=== PATIENT | male | born 1990 ===

== ENCOUNTER 2024-01-01 18:33 | Emergency (ER) | payer MEDICAID, SELFPAY ==
[2024-01-01 18:40] VITALS: BP 137/86; PULSE 89; RESP 18; TEMP 37.1; O2SAT 96; BMI 42.8
--- NOTE | 2024-01-01 18:41 | ED.GENADULT ---
HPI - General Adult General Chief complaint: Abdominal Pain Stated complaint: abd pain ,legs swollen Time Seen by Provider: 01/02/24 01:00 Source: patient Mode of arrival: ambulatory History of Present Illness ED Provider: Dr. Katz HPI narrative: Patient has known for years that he has hep C. He has not undergone any treatments. States on occasion he has noticed that his eyes are yellow and his urine is dark. States he intermittently has leg swelling and has an itchy rash to his legs. Related Data Allergies Allergy/AdvReac Type Severity Reaction Status Date / Time bee pollen [bee stings] Allergy Anaphylaxis Verified 01/01/24 18:40 shellfish derived Allergy Hives Verified 01/01/24 18:40 Review of Systems Review of Systems: Yes all other systems are reviewed and are negative Neurologic: Denies Sensory deficit (Neuro) Physical Exam ED Vital Signs: Vital Signs - 24 hr 01/01/24 18:40 01/02/24 01:02 Temperature 98.7 F 97.9 F Pulse Rate 89 70 Respiratory Rate 18 18 Blood Pressure 137/86 113/62 Pulse Oximetry 96 97 Oxygen Delivery Method Room Air Room Air BMI result Body Mass Index 42.8 Const Other: obese male looking older than stated age Orientation/consciousness: oriented to person and patient oriented x3 Limitations: no limitations HENMT Head: Yes normal to inspection Ears: external ears normal General nose exam: Normal external nose present Mouth: Normal oral and palatal mucosa present and oropharynx normal Throat: Yes posterior oropharynx normal Eyes General: appearance normal, both eyes and all related structures Neck Neck: Yes normal visual inspection Chest Chest palpation & inspection: normal inspection of the chest Resp Auscultation: clear to auscultation bilaterally Cardio Jugular venous distension: no JVD Rate: regular rate Rhythm: regular rhythm Heart sounds: S1 normal heart sound present and S2 normal heart sound present GI Inspection: Yes normal to inspection Palpation (GI): Soft to palpation, nontender and No hepatosplenomegaly present Auscultation: normal bowel sounds General: Yes no CVA tenderness Back/Spine/Pelvis Back: no CVA tenderness Skin Other: bilateral leg swelling with folliculitis to both legs Neuro General: oriented to person and patient oriented x3 Cranial nerves: Yes CN's II-XII intact bilaterally Motor exam (neuro): 5/5 motor strength present throughout Sensory Exam: No Sensory deficit (Neuro) Extrem Other: leg edema bilaterally Psych Appearance: grossly normal Course Course Course Narrative: RME performed by Juliana Thompson PA-C. Patient is a 33 year old assigned male at presenting to the emergency department with fatigue and feeling generally unwell. Patient states he has a history of hepatitis C that he is not taking care of. Patient states that he recently moved out to [facility] from the [facility]. Patient states that he is also having abdominal pain. Detailed physical exam and review of systems are deferred to the mental health clinician. Labs and swabs ordered. Patient placed back in the waiting room pending room availability and results. Reevaluation(s) Reevaluation #1: patient with elevated lfts likely secondary to his hepatitis C. Will refer to infectious disease Time: 01:25 Medical Decision Making Differential Diagnosis Differential Diagnoses: The differential diagnosis associated with the presentation includes (liver failure, cirrhosis, hepatitis C, folliculitis) Admission/Observation Consideration of admission/observation: Escalation of care including admission/observation considered (upon arrival patient considered for admission) Lab Data 01/01/24 21:42 01/01/24 21:42 Labs: Lab Results 01/01/24 01/01/24 Range/Units 19:00 21:42 WBC 8.8 (4.8-10.8) X10*3/uL RBC 4.62 (4.60-5.80) X10*6/uL Hgb 14.4 (14.0-18.0) g/dl Hct 42.5 (42.0-52.0) % MCV 92.0 (80.0-98.0) fL MCH 31.2 (27.0-33.0) pg MCHC 33.9 (31.0-36.0) g/dl RDW 12.5 (11.0-16.0) % Plt Count 127 L (160-400) X10*3/uL MPV 10.5 (9.4-12.4) fL Immature Gran % (Auto) 0.6 H (0.0-0.4) % Neut % (Auto) 55.7 (45-73) % Lymph % (Auto) 33.5 (20-40) % [place] % (Auto) 8.0 (2-11) % Eos % (Auto) 1.6 (0-4) % Baso % (Auto) 0.6 (0-2) % Lymph # (Auto) 2.9 (1.2-4.9) X10*3/uL [place] # (Auto) 0.7 (0.1-1.2) X10*3/uL Eos # (Auto) 0.1 (0.0-0.4) X10*3/uL Baso # (Auto) 0.1 (0.0-0.2) X10*3/uL Abs Immat Gran (auto) 0.05 H (0.00-0.03) X10*3/uL Absolute Neuts (auto) 4.9 (2.0-8.3) x10*3/uL Absolute Nucleated RBC 0.000 (0.0-0.012) X10*3/uL Nucleated RBC % (auto) 0.0 (0.0-0.2) /100WBC PT 12.1 (11.1-13.3) SEC INR 1.0 (0.9-1.1) APTT 34.1 (26.0-36.8) SEC Sodium 139 (135-145) mmol/L Potassium 3.9 (3.3-5.1) mmol/L Chloride 106 (96-108) mmol/L Carbon Dioxide 24 (22-29) mmol/L Anion Gap 13 (12-20) BUN 15 (9-16) mg/dL Creatinine 1.13 (0.5-1.4) mg/dL Estim Creat Clear Calc 135.1 Estimated GFR > 60 Random Glucose 103 (60-115) mg/dL Calcium 9.2 (8.4-10.2) mg/dL Magnesium 2.1 (1.6-2.6) mg/dL Total Bilirubin 0.5 (0.0-1.0) mg/dL AST 122 H (5-37) U/L ALT 103 H (0-40) U/L Alkaline Phosphatase 142 H (39-117) U/L Ammonia 49 (13-55) umol/L Total Protein 7.7 (6.5-8.0) g/dL Albumin 3.5 (3.5-5.0) g/dL Lipase 21 (8-78) U/L Influenza Type A (PCR) NEGATIVE (Negative) Influenza Type B (PCR) NEGATIVE (Negative) RSV RNA Qual (PCR) NEGATIVE (Negative) SARS-CoV-2 RNA (RT-PCR) NEGATIVE (Negative) Tests considered The following testing was considered but not selected: US of liver considered but patient with known hep C with liver damage Prescription Management I considered prescription management with: Antibiotic (no bacterial infection noted) Chronic Conditions Patient?s care impacted by: Other (Hep C) Social Determinants Patient?s care significantly limited by Social Determinants of Health including: Low income and Alcoholism and drug addiction in family Discharge Plan Discharge Clinical Impression: Hepatitis C, Folliculitis Patient Disposition: Home, Self-Care Instructions: Hepatitis C (ED), Folliculitis (ED) Additional Instructions: call Dr. Vidal for your hepatitis C treatment Referrals: Dolores Vidal MD [Physician] - 5 days Print Language: Turkmen
[2024-01-01 19:50] LABS: Influenza A PCR NEGATIVE (Negative); Influenza B PCR NEGATIVE (Negative); Resp Syncy Virus RNA Qual PCR NEGATIVE (Negative); SARS COV2 PCR INHOUSE NEGATIVE (Negative)
[2024-01-01 21:49] LABS: MANUAL DIFF FLAG NO
[2024-01-01 21:52] LABS: Basophils Absolute Auto 0.1 X10*3/uL (0.0-0.2); Basophils Percent Auto 0.6 % (0-2); Eosinophils Absolute Auto 0.1 X10*3/uL (0.0-0.4); Eosinophils Percent Auto 1.6 % (0-4); Hematocrit 42.5 % (42.0-52.0); Hemoglobin 14.4 g/dl (14.0-18.0); Imm Gran Abs Auto 0.05 X10*3/uL (0.00-0.03); Imm Gran Pct Auto 0.6 % (0.0-0.4); Lymphocytes Absolute Auto 2.9 X10*3/uL (1.2-4.9); Lymphocytes Percent Auto 33.5 % (20-40); Mean Corpuscular HGB Conc 33.9 g/dl (31.0-36.0); Mean Corpuscular Hemoglobin 31.2 pg (27.0-33.0); Mean Platelet Volume 10.5 fL (9.4-12.4); Monocytes Absolute Auto 0.7 X10*3/uL (0.1-1.2); Neutrophils Absolute Auto 4.9 x10*3/uL (2.0-8.3); Neutrophils Percent Auto 55.7 % (45-73); Platelet Count 127 X10*3/uL (160-400); Red Blood Count 4.62 X10*6/uL (4.60-5.80); Red Cell Distribution Width 12.5 % (11.0-16.0); White Blood Count 8.8 X10*3/uL (4.8-10.8)
[2024-01-01 21:56] LABS: Prothrombin Time 12.1 SEC (11.1-13.3)
[2024-01-01 21:57] LABS: Ammonia 49 umol/L (13-55)
[2024-01-01 21:59] LABS: Partial Thromboplastin Time 34.1 SEC (26.0-36.8)
[2024-01-01 22:06] LABS: Alanine Aminotransferase 103 U/L (0-40); Albumin Level 3.5 g/dL (3.5-5.0); Alkaline Phosphatase 142 U/L (39-117); Anion Gap 13 (12-20); Aspartate Amino Transferase 122 U/L (5-37); Bilirubin Total 0.5 mg/dL (0.0-1.0); Blood Urea Nitrogen 15 mg/dL (9-16); Calcium 9.2 mg/dL (8.4-10.2); Carbon Dioxide 24 mmol/L (22-29); Chloride 106 mmol/L (96-108); Creatinine Clr Calc Pharmacy 135.1; Estimated Glomerular Filt Rate > 60; Glucose Random 103 mg/dL (60-115); Lipase 21 U/L (8-78); Magnesium 2.1 mg/dL (1.6-2.6); Potassium 3.9 mmol/L (3.3-5.1); Sodium 139 mmol/L (135-145); Total Protein 7.7 g/dL (6.5-8.0)
--- NOTE | 2024-01-01 22:43 | PC.NURSE ---
Sleeping on bench outside of ER Waiting room, per registration staff.
[2024-01-02 01:02] VITALS: BP 113/62; PULSE 70; RESP 18; TEMP 36.6; O2SAT 97
[2024-01-02 01:47] VITALS: BP 113/62; PULSE 70; RESP 18; TEMP 36.6; O2SAT 97
== END 2024-01-02 01:47 | disposition home or self-care (01) ==
PROVIDERS: Physician Assistant Medical; Emergency Provider Emergency Medicine
DX: R10.9 Unspecified abdominal pain (principal); L73.9 Follicular disorder, unspecified; B19.20 Unspecified viral hepatitis C without hepatic coma; R60.0 Localized edema; Z03.818 Encounter for observation for suspected exposure to other biological agents ruled out; Z79.899 Other long term (current) drug therapy
CPT/HCPCS: 0241U; 80053; 82140; 83690; 83735; 85025; 85610; 85730; 99283

== ENCOUNTER 2024-01-15 15:48 | Outpatient (AMB) | payer MEDICAID, SELFPAY ==
--- NOTE | 2024-01-15 15:49 | A.OFFVIS_ITS ---
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 He is interested in getting Hepatitis C treated. [facility] Medical History Abdominal discomfort in right upper quadrant Hepatitis C antibody positive in blood Review of Systems Const All systems reviewed & are unremarkable except as noted in HPI and below Physical Exam Vital Signs: Last Vital Signs Pulse 85 01/15/24 15:54 BP 155/80 H 01/15/24 15:54 BMI result Body Mass Index 43.0 Const General: cooperative Orientation/consciousness: patient oriented x3 HEENT Head: Yes normal to inspection Mouth: Normal oral and palatal mucosa present Eyes General: appearance normal, both eyes and all related structures Pupils: Equal, round and reactive pupils present Resp Effort & Inspection: normal respiratory effort Cardio Rate: regular rate Rhythm: regular rhythm GI Palpation (GI): Soft to palpation and nontender General: Yes no CVA tenderness Back/Spine/Pelvis Back: no CVA tenderness Skin General skin exam: no rashes or lesions noted Neuro General: patient oriented x3 Cranial nerves: Yes CN's II-XII intact bilaterally and Yes Equal, round and reactive pupils present Extrem General: Yes normal to inspection Psych Appearance: grossly normal Assessment & Plan Assessment & Plan (1) Hepatitis C: Comment: We need to check viral load and labs and order them and u/s Code(s): B19.20 - Unspecified viral hepatitis C without hepatic coma Category: Medical Plan: Check u/s abdomen Check labs Treat and see back one month after treatment. (2) Hepatitis C antibody positive in blood: Code(s): R76.8 - Other specified abnormal immunological findings in serum Category: Medical Plan: na Orders: Orders Complete Blood Count Auto Diff 01/15/24 B19.20 - Unspecified viral hepatitis C without hepatic coma Liver Panel 01/15/24 B19.20 - Unspecified viral hepatitis C without hepatic coma Hepatitis C Antibody 01/15/24 B19.20 - Unspecified viral hepatitis C without hepatic coma Hepatitis B Surface Antibody 01/15/24 B19.20 - Unspecified viral hepatitis C without hepatic coma Hepatitis B Surface Antigen 01/15/24 B19.20 - Unspecified viral hepatitis C without hepatic coma Hepatitis B Core Antibody 01/15/24 B19.20 - Unspecified viral hepatitis C without hepatic coma Basic Metabolic Panel 01/15/24 B19.20 - Unspecified viral hepatitis C without hepatic coma Hepatitis C Viral Load 01/15/24 R76.8 - Other specified abnormal immunological findings in serum Liver Fibrosis Pnl 01/15/24 B19.20 - Unspecified viral hepatitis C without hepatic coma, R76.8 - Other specified abnormal immunological findings in serum Prothrombin Time INR 01/15/24 R76.8 - Other specified abnormal immunological findings in serum Hepatitis A IgG 01/15/24 R76.8 - Other specified abnormal immunological findings in serum HIV Ab/Ag 01/15/24 B19.20 - Unspecified viral hepatitis C without hepatic coma US abdomen complete 01/15/24 R10.11 - Right upper quadrant pain Coding Level of Care Code New Pt Level 3 (58211) Diagnoses Hepatitis C B19.20 Hepatitis C antibody positive in blood R76.8
[2024-01-15 15:54] VITALS: BP 155/80; PULSE 85; BMI 43.0
== END 2024-01-15 18:45 | disposition home or self-care (01) ==
LOC: HO.HID 15:48
PROVIDERS: Visit Provider Internal Medicine
DX: B19.20 Unspecified viral hepatitis C without hepatic coma (principal); R76.8 Other specified abnormal immunological findings in serum
CPT/HCPCS: 99203

== ENCOUNTER 2024-01-15 15:48 | Outpatient (REF) | payer MEDICAID, SELFPAY ==
[2024-01-15 16:48] LABS: MANUAL DIFF FLAG NO
[2024-01-15 17:20] LABS: Basophils Percent Auto 0.3 % (0-2); Eosinophils Absolute Auto 0.1 X10*3/uL (0.0-0.4); Eosinophils Percent Auto 0.7 % (0-4); Hematocrit 45.9 % (42.0-52.0); Hemoglobin 15.1 g/dl (14.0-18.0); Imm Gran Abs Auto 0.06 X10*3/uL (0.00-0.03); Imm Gran Pct Auto 0.7 % (0.0-0.4); Lymphocytes Absolute Auto 2.7 X10*3/uL (1.2-4.9); Lymphocytes Percent Auto 29.9 % (20-40); Mean Corpuscular HGB Conc 32.9 g/dl (31.0-36.0); Mean Corpuscular Hemoglobin 30.4 pg (27.0-33.0); Mean Corpuscular Volume 92.5 fL (80.0-98.0); Mean Platelet Volume 11.2 fL (9.4-12.4); Monocytes Absolute Auto 0.5 X10*3/uL (0.1-1.2); Monocytes Percent Auto 5.6 % (2-11); Neutrophils Absolute Auto 5.7 x10*3/uL (2.0-8.3); Neutrophils Percent Auto 62.8 % (45-73); Platelet Count 153 X10*3/uL (160-400); Red Blood Count 4.96 X10*6/uL (4.60-5.80); Red Cell Distribution Width 12.2 % (11.0-16.0); White Blood Count 9.1 X10*3/uL (4.8-10.8)
[2024-01-15 17:25] LABS: Prothrombin Time 12.6 SEC (11.1-13.3)
[2024-01-15 18:27] LABS: Alanine Aminotransferase 89 U/L (0-40); Albumin Level 3.8 g/dL (3.5-5.0); Alkaline Phosphatase 142 U/L (39-117); Anion Gap 14 (12-20); Aspartate Amino Transferase 101 U/L (5-37); Bilirubin Direct 0.2 mg/dL (0.0-0.5); Bilirubin Total 0.4 mg/dL (0.0-1.0); Blood Urea Nitrogen 13 mg/dL (9-16); Calcium 9.5 mg/dL (8.4-10.2); Carbon Dioxide 26 mmol/L (22-29); Chloride 104 mmol/L (96-108); Estimated Glomerular Filt Rate > 60; Glucose Random 83 mg/dL (60-115); Potassium 3.9 mmol/L (3.3-5.1); Sodium 140 mmol/L (135-145); Total Protein 8.2 g/dL (6.5-8.0)
[2024-01-16 04:26] LABS: HBsAGNum1 0.24 S/CO (0.00-0.99); Hepatitis B Core Antibody Nonreactive (Nonreactive); Hepatitis B Surface Antigen Negative (Negative); ~HepC Num1 15.24 S/CO (0.00-0.79); ~Hepatitis B Surface Antibody REACTIVE (Nonreactive); ~Hepatitis C Antibody Reactive (Nonreactive)
[2024-01-16 04:37] LABS: Hepatitis A Antibody IgG REACTIVE (Nonreactive); ~Hepatitis A Antibody IgG 3.49 S/CO (0.00-0.99)
[2024-01-16 04:51] LABS: HIV AB/AG Nonreactive (Nonreactive); HIV Num 1 0.04 S/CO (0.00-0.99)
[2024-01-17 13:18] LABS: HCV Log PCR 6.38 Log IU/mL (NOT DETECTED); HepC Viral Load 2380000 IU/mL (NOT DETECTED)
[2024-01-22 15:38] LABS: FIB-ALT 78 U/L (9-46); FIB-Alpha-2-Macroglobulin 294 mg/dL (106-279); FIB-Apolipoprotein A1 160 mg/dL (94-176); FIB-GGT 83 U/L (3-90); FIB-Haptoglobin 39 mg/dL (43-212); FIB-Total Bilirubin 0.4 mg/dL (0.2-1.2); Liver Fibrosis Score 0.47; Liver Fibrosis Stage F1-F2; Nec Inflam Act Grade A2; Nec Inflam Act Score 0.53
== END 2024-01-15 15:49 | disposition home or self-care (01) ==
LOC: HO.LAB 15:48
PROVIDERS: Visit Provider Internal Medicine
DX: B19.20 Unspecified viral hepatitis C without hepatic coma (principal); R76.8 Other specified abnormal immunological findings in serum
CPT/HCPCS: 36415; 80048; 80076; 81596; 85025; 85610; 86704; 86706; 86708; 86803; 87340; 87389; 87522; 99202

== ENCOUNTER 2024-02-15 09:45 | Outpatient (REF) | payer MEDICAID, SELFPAY ==
--- NOTE | ~2024-02-15 | US_ITS ---
EXAMINATION: US ABDOMEN COMPLETE CLINICAL INFORMATION: Right upper quadrant pain. COMPARISON: None available. TECHNIQUE: Real-time imaging of the abdominal viscera. Technically difficult study secondary to bowel gas and body habitus. FINDINGS: PANCREAS: The pancreas could not be seen as it was obscured by bowel gas. ABDOMINAL AORTA: The proximal aorta was not visualized, the distal aorta is nonaneurysmal. INFERIOR VENA CAVA: Visualized portions are normal. LIVER: The liver contour is normal. No focal hepatic lesion. There is no intrahepatic biliary duct dilatation seen. GALLBLADDER: Normal. The gallbladder is physiologically distended without evidence of stones, sludge, polyps, wall thickening or pericholecystic fluid. COMMON BILE DUCT: Normal in caliber measuring 0.3 cm in diameter. RIGHT KIDNEY: Normal. No hydronephrosis. No renal calculi or focal parenchymal lesions. The kidney measures 9.9 cm in maximum dimension. LEFT KIDNEY: Normal. No hydronephrosis. No renal calculi or focal parenchymal lesions. The kidney measures 10.0 cm in maximum dimension. SPLEEN: The spleen is mildly enlarged measuring 13.7 cm in maximum dimension. FREE FLUID: None. US/US abdomen complete IMPRESSION: No significant abnormality is seen aside from some mild splenomegaly. The pancreas and proximal aorta were not visualized. Electronically signed by: Sergey Sanders MD 02/23/2024 03:49 PM EDT
== END 2024-02-15 09:46 | disposition home or self-care (01) ==
LOC: HO.US 09:45
PROVIDERS: Visit Provider Internal Medicine
DX: R10.11 Right upper quadrant pain (principal)
CPT/HCPCS: 76700

== ENCOUNTER 2024-02-28 15:51 | Outpatient (AMB) | payer MEDICAID, SELFPAY ==
[2024-02-28 16:50] VITALS: PULSE 83; TEMP 36.9; O2SAT 95; BMI 44.2
--- NOTE | 2024-02-28 16:50 | MHC.OFFVIS ---
Vital Signs 02/28/24 16:50 Height 6 ft Weight 326 lb BMI 44.2 Pulse 83 Pulse Source Pulse Oximeter Temp 98.4 F Temp Source Oral Pulse Oximetry (%) 95 Oxygen Delivery Method Room Air Intake Visit Reasons: fu ultrasound and labs Allergies bee pollen [bee stings] Allergy (Verified 02/28/24 16:51) Anaphylaxis shellfish derived Allergy (Verified 02/28/24 16:51) Hives HPI HPI fu ultrasound and labs: Details: He has F1-F2 liver disease. He has viral load 2,840,000 Hepatitis C. Would treat mavyret or epclusa. Virtual visit with viral load before in six weeks. [facility] Medical History Abdominal discomfort in right upper quadrant Hepatitis C antibody positive in blood Physical Exam Vital Signs: Last Vital Signs Temp 98.4 F 02/28/24 16:50 Pulse 83 02/28/24 16:50 Pulse Ox 95 02/28/24 16:50 Oxygen Delivery Method Room Air 02/28/24 16:50 BMI result Body Mass Index 44.2 Assessment & Plan Assessment & Plan (1) Hepatitis C antibody positive in blood: Comment: He needs Hepatitis C treatment. Code(s): R76.8 - Other specified abnormal immunological findings in serum Category: Medical Plan: na Orders: Orders Venous Lead 6 Weeks R10.11 - Right upper quadrant pain Hepatitis C Viral Load 6 Weeks R76.8 - Other specified abnormal immunological findings in serum Medications: New glecaprevir-pibrentasvir 100-40 mg (Mavyret) must administer with a meal/food 3 tabs PO DAILY 8 weeks 168 tabs 0RF glecaprevir-pibrentasvir 100-40 mg (Mavyret) must administer with a meal/food 3 tabs PO DAILY 8 weeks 168 tabs 0RF Coding Level of Care Code Est Pt Level 3 (71824) Diagnoses Hepatitis C antibody positive in blood R76.8
== END 2024-02-28 16:24 | disposition home or self-care (01) ==
PROVIDERS: Visit Provider Internal Medicine
DX: R76.8 Other specified abnormal immunological findings in serum (principal)
CPT/HCPCS: 99213

== ENCOUNTER → 2024-02-28 15:51 | Outpatient (BNVA) | payer MEDICAID, SELFPAY | PROVIDERS: Visit Provider Internal Medicine | DX: R76.8 Other specified abnormal immunological findings in serum (principal) | CPT/HCPCS: 99212 ==

== ENCOUNTER 2024-05-30 14:57 | Outpatient (REF) | payer MEDICAID, SELFPAY ==
[2024-06-03 14:19] LABS: HCV Log PCR <1.18 NOT DETECTED Log IU/mL (NOT DETECTED); HepC Viral Load <15 NOT DETECTED IU/mL (NOT DETECTED)
[2024-06-03 16:53] LABS: Venous Lead 5.1 mcg/dL (<3.5)
[2024-06-04 14:03] LABS: Hepatitis C Genotype Not Detected
== END 2024-05-30 14:58 | disposition home or self-care (01) ==
LOC: HO.LAB 14:57
PROVIDERS: Visit Provider Internal Medicine
DX: R10.11 Right upper quadrant pain (principal); R76.8 Other specified abnormal immunological findings in serum
CPT/HCPCS: 36415; 83655; 87522; 87902